=== PATIENT | male | born 1980 | race American Indian/Alaskan Native ===

== ENCOUNTER 2018-01-23 09:32 | Emergency (ER) | payer SELFPAY ==
[~2018-01-23] VITALS: Ht 170.2 cm; Wt 73.0 kg
[~2018-01-23 09:32] MED LIST: NOHOMEMEDS
[2018-01-23 11:56] LABS: SOURCE URINE
[2018-01-23 12:03] LABS: APPEARANCE CLEAR ((CLEAR)); BILIRUBIN NEGATIVE; BLOOD NEGATIVE; COLOR YELLOW ((YELLOW)); GLUCOSE (STRIP) NEGATIVE; KETONES NEGATIVE; LEUKOCYTES NEGATIVE; NITRITE NEGATIVE; PROTEIN (STRIP) NEGATIVE; SPECIFIC GRAVITY 1.021 (1.000-1.030); UCUL ADDED? NO
[2018-01-23 12:55] VITALS: BP 140/88
[2018-01-26 12:57] LABS: CHLAMYDIA TRACHOMATIS NEGATIVE; NEISSERIA GONORRHOEAE NEGATIVE
== END 2018-01-23 12:57 | disposition home or self-care (01) ==
LOC: EME 09:32
PROVIDERS: Nurse Practitioner Family
DX: S30.862A Insect bite (nonvenomous) of penis, initial encounter (principal); W57.XXXA Bitten or stung by nonvenomous insect and other nonvenomous arthropods, initial encounter; Y92.832 Beach as the place of occurrence of the external cause; N48.89 Other specified disorders of penis
CPT/HCPCS: 81003; 87491; 87591; 99281; 99283